=== PATIENT | male | born 1950 | race Caucasian/White ===

== ENCOUNTER → 2018-06-16 | Outpatient (CLI) | payer OTHER ==
[~2018-06-16] VITALS: Ht 188 cm; Wt 113.4 kg
[~2018-06-16] MED LIST: COZAAR 25 MG TA25 M1 PO; FENTANYL PA50 MCG/HR TRANSDERM; HUMALOG KW100 UNIT/1 SUBQ; IBUPROFEN 200200 M1 PO; LANTUS SUBQ; LEVEMIR FL100 UNIT/2 SUBQ; NEURONTIN 300300 M1 PO; NORCO 10-325 T1 EAC1 PO; NORCO 10-325 T1 EACH PO; NOVOLIN 70100 UNIT/5 SQ; PROBIOTIC1 EAC1 PO; STOOL SOFTENER100 MG PO; VALIUM5 MG PO; XARELTO15 MG PO
[2018-06-16 12:53] VITALS: BP 131/81
== END ==
LOC: PAIN 10:56
DX: M54.5 Low back pain (principal); M25.551 Pain in right hip; M25.552 Pain in left hip; Z79.899 Other long term (current) drug therapy

== ENCOUNTER 2019-02-13 10:01 | Inpatient (IN) | payer OTHER ==
[~2019-02-13] VITALS: Ht 188 cm; Wt 109.3 kg
--- NOTE | ~2019-02-13 | HC ---
[facility] [place] [address] CONSULTATION Name: ALEXX LINDSEY Room #: 360-P [facility] IN M.R.#: [id number] Admission: 02/13/19 Attend Phys: Colton Marinelli MD Discharge: Date of : 52 Report #: [id number] THIS REPORT FOR: //name// CC: Hal Marinelli DATE OF SERVICE: 02/14/2019 HISTORY OF PRESENT ILLNESS: The patient is a 68-year-old white male premorbidly independent, ambulatory without gait aid, who began having problems with falls, 4-5 falls in the last couple of days prior to admission. He was noted to have slurred speech during this period along with right-sided weakness. He had an abrasion right forehead after a fall. He was admitted to [facility]. He has been seen by Neurology. He has been diagnosed with a CVA with some mild right-sided hemiparesis. MRI confirmed a left frontal subcortical small infarct, acute versus subacute as well as an old small left parietal cortical infarct. We are seeing the patient in rehabilitation medicine consultation. PAST MEDICAL HISTORY: Includes insulin-dependent diabetes mellitus, rheumatic fever, hypertension, right lower extremity DVT. He does have history of chronic back pain and therapy has caused increased pain. He also has complaints of lower extremity paresthesias. HABITS: Tobacco abuse, 5 cigarettes per day. No history of alcohol abuse. ALLERGIES: LANOLIN. SOCIAL HISTORY: Lives in a house with his sister and [id number], 2 steps in. There is a basement, but he does not typically get down there. He was premorbidly ambulatory without gait aids. REVIEW OF SYSTEMS: Did not offer any current complaints of chest pain, shortness of breath, abdominal discomfort. He does have the lower extremity paresthesias. PHYSICAL EXAMINATION: GENERAL: A 68-year-old bearded white male in no obvious distress. VITAL SIGNS: Last recorded temperature 97.7, pulse 70, respirations 18, blood pressure 140/72. NEUROLOGIC: The patient is alert, appears appropriate. Some decreased verbalizations. Tends to defer to his sister. EOMs appeared to be full. No obvious visual field neglect to confrontation. Facies appeared reasonably symmetric. He is a left-handed white male. He does have good strength of the left upper and left lower extremity without focal weakness. Appears to have some right-sided weakness. Appears mild. I would grade at 4-/5. Right [address] [address] CONSULTATION Name: ALEXX LINDSEY Room #: 360-P [facility] IN .R.#: [id number] Admission: 02/13/19 Attend Phys: Colton Marinelli MD Discharge: Date of : 52 Report #: [id number] and right lower extremity. He might have some mild coordination deficits. Does pretty well with simultaneous stimulation as far as checking sensation. There is no clonus at the ankle and negative Knight's. Gait stability will be checked by physical therapy. ASSESSMENT: A 68-year-old male with the following problem list: 1. Left frontal subcortical infarct, acute versus subacute. 2. Right hemiparesis. 3. Gait instability with multiple falls, just prior to admission. 4. Lower extremity paresthesias with probable diabetic neuropathy per Neurology consultation. 5. Chronic back pain. 6. Hypertension. 7. Rheumatic fever. PLAN: Therapy evaluations are underway. We will need to see how he does in his therapy assessments. With the multiple falls that he had prior to admission, decreased balance. He certainly has significant concern. He certainly may warrant a short acute in-hospital inpatient rehabilitation stay. At this point in time, we will be glad to follow along with you regarding his rehab therapy needs. By: 1055 1425 Jamar Dillon MD /RAYMUNDO
[2019-02-13 10:02] VITALS: BP 164/87
[2019-02-13 10:17] LABS: HEMATOCRIT 44.7 % (42.0-52.0); HEMOGLOBIN 15.2 gm/dL (14.0-18.0); MCH 31.8 pg (26.0-34.0); MCV 93.5 fL (80.0-100.0); PLATELET COUNT 139 thou/uL (150-400); RBC 4.78 mil/uL (4.50-6.00); RDW 12.5 % (10.5-14.5); WBC 9.5 thou/uL (4.0-11.0)
[2019-02-13 10:27] LABS: CALCIUM 9.6 mg/dL (8.5-10.1); CREATININE 1.5 mg/dL (0.7-1.3); POTASSIUM 4.3 mmol/L (3.5-5.1)
[2019-02-13 10:33] LABS: ALBUMIN 3.2 g/dL (3.4-5.0); TOTAL BILIRUBIN 1.1 mg/dL (<0.1-1.0); TOTAL PROTEIN 7.9 g/dL (6.4-8.2)
[2019-02-13 10:42] LABS: APTT 32.6 Seconds (24.5-32.8); PROTIME 10.7 Seconds (9.3-11.4)
[2019-02-13 11:34] LABS: ABSOLUTE NEUTROPHILS 7.2 thou/uL (1.4-8.2)
[2019-02-13 13:32] VITALS: BP 167/99
[2019-02-13 13:50] VITALS: BP 138/69
[2019-02-13 14:00] VITALS: BP 128/102
--- NOTE | 2019-02-13 14:23 | NUR ---
PT ORIENTED TO ROOM AND UNIT, BED LOW AND LOCKED, SIDE RAILS UPX 3, CALL LIGHT IN REACH. TELE APPLIED AND PT SIGNED SAFETY LETTER. WILL CONTINUE TO ASSESS.
--- NOTE | 2019-02-13 14:42 | NUR ---
PT OFF UNIT TO MRI.
[2019-02-13 16:25] LABS: CHOLESTEROL 111 mg/dL (<200); HDL CHOLESTEROL 45 mg/dL (>40); LDL CHOLESTEROL 53 mg/dL (<100); TC:HDL 2.5 Ratio (Not establshd); TRIGLYCERIDE 68 mg/dL (<150); VLDL 14 mg/dL (<40)
[2019-02-13 16:27] LABS: SERUM ASSESSMENT Clear; TSH 1.799 uIU/mL (0.358-3.740)
[2019-02-13 19:42] VITALS: BP 151/76
[2019-02-13 23:19] VITALS: BP 133/78
--- NOTE | 2019-02-14 02:43 | NUR ---
PATIENT IS PROGRESSING SLOWLY IN HIS CARE PLAN. VITAL SIGNS STABLE WITH PATIENT HAVING NO COMPLAINTS OF NAUSEA. PATIENT DID COMPLAIN OF ABDOMINAL PAIN FREQUENTLY WHICH HE ATTRIBUTES TO HIS RECENT FALLS, WHICH WAS TREATED APPROPRIATELY THROUGH MEDICATION. FULLY ORIENTED, PATIENT IS ABLE TO PARTICIPATE IN CARE BUT IS SOMETIMES RELUCTANT TO VOICE CONCERNS AND IS FLAT AT TIMES. UP MULTIPLE TIMES TO THE BEDSIDE COMMODE WITH ASSISTANCE INCIDENT FREE, PATIENT IS CONSIDERED A HIGH FALL RISK AND IS VERY UNSTABLE ON HIS FEET. CONTINUE PLAN OF CARE.
[2019-02-14 04:39] VITALS: BP 125/82
--- NOTE | 2019-02-14 07:44 | EKG ---
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 : 1950 Requested By: Ronal Yanez Order Number: [id number] MD: Inocente Savage Measurements Intervals Higginson Rate: 85 P: 32 SD: 175 QRS: 17 QRSD: 87 T: 99 QT: 384 QTc: 457 Interpretive Statements Sinus rhythm Atrial premature complexes Nonspecific ST and T wave abnormality No previous ECG available for comparison Electronically Signed On 02-14-2019 7:44:21 CDT by Inocente Savage [email or web address] <ELECTRONICALLY SIGNED> By: Inocente Savage MD, [facility] 02/14/19 0744 1002 1002 Inocente Savage MD, FACC /EPI
[2019-02-14 08:36] VITALS: BP 140/72
--- NOTE | 2019-02-14 09:55 | 2DMMODE ---
[facility] [place] [address] 2 D/M-MODE ECHOCARDIOGRAM Name: ALEXX LINDSEY Chantel Room #: 360-P ADM IN .R.#: [id number] Admission: 02/13/19 Attend Phys: Colton Marinelli MD Discharge: Date of : 52 Date of Service: 02/14/19 0955 Report #: [id number] THIS REPORT FOR: //name// APPROVED REPORT Study performed: 02/14/2019 08:56:15 EXAM: Comprehensive 2D, Doppler, and color-flow Echocardiogram Patient Location: Echo lab Room #: 360 Status: routine BSA: 2.34 HR: 70 bpm BP: 140/72 mmHg Rhythm: NSR/Arrhythmia/PVCs Other Information Study Quality: Fair Technically limited study due to body habitus. Indications Stroke. Hx: DM, HTN, CVA. Echo Enhancing Agent Indication: Rule out Shunt Agent(s) / Amount(s) Used: Agitated Saline 6 cc 2D Dimensions RVDd: 34.34 mm IVSd: 13.27 (7-11mm) LVOT Diam: 21.75 (18-24mm) LVDd: 41.12 mm PWd: 9.71 (7-11mm) Ascending Ao: 36.98 (22-36mm) LVDs: 29.04 (25-40mm) Aortic Root: 33.97 mm Volumes Left Atrial Volume (Systole) Single Plane 4CH: 55.07 mL Single Plane 2CH: 55.90 mL LA ESV Index: 25.00 mL/m2 Aortic Valve AoV Peak Gilberto.: 3.76 m/s AO Peak Gr.: 56.65 mmHg LVOT Max P.60 mmHg AO Mean Gr.: 39.35 mmHg AO V2 Mean: 3.01 m/s LVOT Max V: 0.81 m/s [facility] [place] [address] 2 D/M-MODE ECHOCARDIOGRAM Name: ALEXX LINDSEY Room #: 360-P [facility] IN M.R.#: [id number] Admission: 02/13/19 Attend Phys: Colton Marinelli MD Discharge: Date of : 52 Date of Service: 02/14/19 0955 Report #: [id number] AO V2 VTI: 88.96 cm FELIPE Vmax: 0.80 cm2 Mitral Valve E/A Ratio: 0.6 MV Decel. Time: 548.97 ms MV E Max Gilberto.: 0.38 m/s MV A Gilberto.: 0.59 m/s MV PHT: 159.20 ms IVRT: 92.27 ms Pulmonary Valve PV Peak Gilberto.: 0.82 m/s PV Peak Gr.: 2.68 mmHg Pulmonary Vein P Vein S: 0.55 m/s P Vein A: 0.32 m/s P Vein D: 0.28 m/s P Vein A Dur.: 101.5 msec P Vein S/D Ratio: 1.96 Left Ventricle The left ventricle is normal size. Regional wall motion is not well visualized but grossly normal. Mild concentric left ventricular hypertrophy. Left ventricular systolic function is normal. LVEF is 60%. Mild diastolic dysfunction Right Ventricle The right ventricle is normal size. The right ventricular systolic function is normal. Atria The left atrium size is normal. No shunting noted by contrast bubble injection. The right atrium size is normal. Aortic Valve Aortic valve is heavily calcified. Trace aortic regurgitation. There is severe valvular aortic stenosis. Calculated aortic valve area is 0.8 cm2 with maximum pressure gradient of 57 mmHg and mean pressure gradient of 39 mmHg. Mitral Valve The mitral valve is normal in structure. Trace mitral regurgitation. Tricuspid Valve The tricuspid valve is normal in structure. Trace tricuspid regurgitation. Unable to assess PA pressure. [facility] [address] [place] [address] 2 D/M-MODE ECHOCARDIOGRAM Name: ALEXX LINDSEY Room #: 360-P [facility] IN ..#: [id number] Admission: 02/13/19 Attend Phys: Colton Marinelli MD Discharge: Date of : 52 Date of Service: 02/14/19 0955 Report #: [id number] Pulmonic Valve Pulmonic valve is not well visualized. Great Vessels The aortic root is normal in size. The ascending aorta is normal in size. IVC is not well visualized. Pericardium There is no pericardial effusion. <Conclusion> Left ventricular systolic function is normal. Regional wall motion is not well visualized but grossly normal. LVEF is 60%. Mild diastolic dysfunction No shunting noted by contrast bubble injection. There is severe valvular aortic stenosis. Trace aortic regurgitation. Calculated aortic valve area is 0.8 cm2 (Peak pressure gradient of 57 mmHg, mean pressure gradient of 39 mmHg). The mitral valve is normal in structure. Trace mitral regurgitation. Pulomonary artery pressure could not be reliably ascertained. There is no pericardial effusion. <ELECTRONICALLY SIGNED> By: Inocente Savage MD, FACC 02/14/19954 4 4 Inocente Savage MD, FACC /INF
[2019-02-14 10:16] LABS: URINE BILIRUBIN NEGATIVE (Negative); URINE BLOOD TRACE (Negative); URINE CLARITY CLEAR; URINE COLOR YELLOW; URINE GLUCOSE-RANDOM* TRACE (Negative); URINE KETONES NEGATIVE (Negative); URINE LEUKOCYTES NEGATIVE (Negative); URINE NITRITE NEGATIVE (Negative); URINE PROTEIN (DIPSTICK) 3+ (Negative); URINE SPECIFIC GRAVITY 1.025 (1.005-1.035); URINE UROBILINOGEN 0.2 E.U./dl (0.2-1.0)
[2019-02-14 10:23] LABS: BACTERIA 1-9 Few /HPF (None Seen); CRYSTALS None Seen /LPF (None Seen); HYALINE CASTS 0-3 Few /LPF (None Seen); SQUAMOUS 0-3 Few /LPF (0-3); URINE RBC 0-2 Rare /HPF (0-2); URINE WBC 0-5 Rare /HPF (0-5)
--- NOTE | 2019-02-14 14:08 | NUR ---
INITIAL ASSESSMENT: Received consult for discharge planning. AINSLEY reviewed chart and spoke with nursing and attending physician. Pt was admitted from home following period of weakness and falls. Pt with hx of CVA. Therapy services and 5N consulted to evaluate pt for discharge needs. AINSLEY met with pt and his sister at bedside. Introduced role of SW. Pt is alert/orientated. Pt lives at home with his sister and brother in law. 2 steps to enter to house and no steps on the ground level. Prior to admission, pt was independent with ADLs. No use of DME. No hx of HH services or SNF/Rehab placement. AINSLEY discussed 5N consult and need for insurance authorization. Pt and sister are agreeable. SW to provide in-network SNF list for review if insurance does not authorize 5N. AINSLEY is following to assist as needed with discharge planning.
--- NOTE | 2019-02-14 15:00 | NUR ---
CONSULT FOR 5N REHAB FOR THIS Pt. Pt SEEN BY REHABILIATION PHYSICIAN FOR CONSULT. Pt ADMITTED TO [facility] AND FOUND TO HAVE L FRONTAL CVA ACUTE VS SUBACUTE WITH SOME R SIDED IMPAIRMENTS. AWAITING THERAPY EVALUATIONS TO BE COMPLETED. WILL PURSUE AUTHORIZATION FOR ACUTE REHAB IF NEEDED BASED ON THERAPY EVALUATIONS AND RECOMMENDATIONS. 5N REHAB WILL CONTINUE TO FOLLOW. THANK YOU FOR THIS REFERRAL TO THE ACUTE REHAB UNIT.
[2019-02-14 15:37] VITALS: BP 138/81
--- NOTE | 2019-02-14 18:41 | NUR ---
Assumed care approx. 0700 this AM. Flat affect and slow response noted. Patient had no complaints of pain, but was nauseated most of the day. Order given for 4mg of IV zofran. Patient seems to a little weaker on his right side than left, and doesn't have full leg strength. Patient up with gait belt and walker. Patient quite unsteady on feet and loses balance easily. Patient can be quick to fall back and side to side. PT stated patient is definitely a high fall risk, and if bed/chair alarm goes off then it is important to get to the room quick. Fall precautions are in place. Patient's sister at bedside most of shift. Slow progression toward plan of care.
[2019-02-14 19:30] VITALS: BP 136/80
[2019-02-15 03:59] VITALS: BP 122/80
--- NOTE | 2019-02-15 06:00 | NUR ---
PT HAS FLAT EFFECT. A/OX4 AND CAN ANSWER PERSON/PLACE/TIME QUESTIONS CORRECTLY, BUT JUST A SLOW. PT STATED HE WAS HAVING ABDOMINAL PAIN AT ASSESSMENT TIME. ORAL PAIN MEDICATION GIVEN. AT 0130 PT STATED HE WAS HURTING IN ABDOMEN. BLADDER SCANNED AND PT HAD 800ML. X2 WITH GAIT BELT TO [facility]. PT VOIDED 400ML. RESCANNED AND PT HAD 300ML. PT STATED HE FELT MUCH BETTER, WILL CONTINUE TO MONITOR AND DISCUSS AT MORNING REPORT. FALL PRECAUTIONS IN PLACE PT IS WEAK AND HAS RIGHT SIDED WEAKNESS DUE TO CVA. HOURLY ROUNDING.
[2019-02-15 07:29] VITALS: BP 142/89
[2019-02-15] MEDS ORDERED: VALIUM5 MG PO (12:14)
--- NOTE | 2019-02-15 13:12 | NUR ---
SW reviewed chart and spoke with nursing and attending physician. Pt is progressing towards goals for discharge. SW discussed with 5N rehab nurse. 5N did submit for insurance authorization today. AINSLEY met with pt and sister at bedside to provide update. SW provided pt and sister with list of in network SNFs for review in case insurance denied inpt acute rehab. Awaiting determination from insurance at this time. AINSLEY is following to assist as needed with discharge planning.
[2019-02-15 15:35] VITALS: BP 150/81
--- NOTE | 2019-02-15 15:53 | NUR ---
Pt HAS BEEN SEEN BY PT AND OT AND RECOMMENDATIONS HAVE BEEN MADE FOR ACUTE REHAB. SUBMITTED FOR AUTHORIZATION WITH [facility]. CONFIRMED WITH [facility] GIS MANAGER GIOVANA THAT [facility] IS IN-NETWORK. SPOKE WITH ELISE AT [facility] AND RECEIVED REFERENCE #: [id number]. AWAITING UPDATE FROM [facility] REGARDING AUTHORIZATION FOR ACUTE REHAB.
[2019-02-15 19:14] VITALS: BP 159/90
[2019-02-16] VITALS (7 sets, daily range): BP systolic 121–142; BP diastolic 71–85
--- NOTE | 2019-02-16 05:15 | NUR ---
PT SHOWED UP AT 0400 AND WAS DEMANDING ANSWERS ABOUT PT CONDITION. I ASKED HER IF SHE HAD PTS 4 DIGIT SECURITY CODE, AND SHE SAID NO. I EXPLAINED DUE TO HIPAA I COULD NOT RELEASE HIS INFORMATION OR CONDITION TO HER. PT IS NOT LISTED AN AUTHORIZED CONTACT ON HIS FACE SHEET. THE ONLY AUTHORIZED POC IS EMILY GRANADOS. "" SAID HE SENT HER A TEXT THAT HE WAS HERE. THROUGH REPORT PT LIVES WITH HIS SON AND [id number]. WILL CONTINUE TO MONITOR SITUATION.
--- NOTE | 2019-02-16 05:27 | NUR ---
AT 2100 PT STATED THAT HIS ABDOMEN WAS HURTING AND HE NEEDED TO URINATE. ORDERS WERE GIVEN DURING THE DAY TO BLADDER SCAN AND STRAIGHT CATH AT 450ML. PT HAD 325ML SCAN AT 2100. I EDUCATED PT THAT I WOULD NOT STRAIGHT CATH UNTIL WE REACHED THAT JOCELIN. PT WAS PLACED ON FLOWMAX EARLIER IN THE DAY ALSO. PT FINALLY ABLE TO VOID APPROX 850ML OVER THE REST OF THE SHIFT VIA URINAL. HOURLY ROUNDING AND FALL PRECAUTIONS IN PLACE.
--- NOTE | 2019-02-16 11:42 | NUR ---
LINQ RECORDER PLACED BY DR SHELBY WITHOUT DIFFICULTY. SITE NUMBED WITH 9 CC LIDOCAINE. PT TOLLERATED WELL. SITE SUTURED CLOSE AND STERI STRIPS APPLIED. STERILE GAUZE DSG PLACED OVER SITE. PT MONITORED X 30 MIN. NO BLEDING HEMATOMA NOTED . PT RETURNED TO ROOM STABLE CONDITION. REPORT GIVEN TO PT'S RN
--- NOTE | 2019-02-16 13:56 | NUR ---
SW reviewed chart and spoke with nursing and attending physician. Pt is progressing towards goals for discharge. Discussed case with 5N regional liaison, who is waiting to hear back from pt's health insurance. SW is following to assist as needed with discharge planning.
--- NOTE | 2019-02-16 17:45 | NUR ---
ASSUMED CARE OF PT AT 0700. PT ALERT AND ORIENTED IN NO ACUTE DISTRESS. VOICING NO PARTICULAR CONCERNS. PHYSICAL THERAPY IMPROVED SINCE YESTERDAY. UP W/ MIN ASSIST PER PHYSICAL THERAPIST. IMPLANTED LOOP RECORDER PLACED BY CARDIOLOGY. VOIDING IMPROVED AFTER FLOMAX. PT PROGRESSING TOWARD POC GOALS.
--- NOTE | 2019-02-16 18:04 | NUR ---
AUTHORIZATION FOR ACUTE REHAB RECEIVED FOR THIS Pt FOR 14 DAYS. Pt WENT FOR IMPLANTED LOOP RECORDER TODAY. WILL PLAN FOR 5N ADMISSION TOMORROW IF CLEARED FOR D/C.
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
--- NOTE | 2019-02-17 04:39 | NUR ---
Assumed care of patient around 2300. Patient able to sleep most of night. Denies pain, soa, n/v, dizziness. No acute changes overnight, will continue to monitor.
[2019-02-17 04:56] VITALS: BP 142/87
[2019-02-17 07:02] VITALS: BP 142/83
[2019-02-17] MEDS ORDERED: LIPITOR40 MG PO (12:13)
[2019-02-17] MEDS ORDERED: FLOMAX0.4 MG PO (12:13)
[2019-02-17] MEDS ORDERED: LEVEMIR SUBQ (12:13)
[2019-02-17] MEDS ORDERED: ASPIR 8181 MG PO (12:13)
[2019-02-17] MEDS ORDERED: NOVOLOG100 UNIT/1 SUBQ (12:13)
--- NOTE | 2019-02-17 13:21 | NUR ---
PT ALERT AND ORIENTED TIMES FOUR. VSS, SR ON TELE. PT DENIES PAIN/SOA. PT UP TO BSC WITH ASSIST OF ONE. PT TOLERATES MEDS AND MEALS. FAMILY AT BEDSIDE. PT PROGRESSING TOWRADS POC GOALS.
== END 2019-02-17 13:03 | DRG 65 ==
LOC: ER 10:01 → EROBS 12:39 → 3W 12:39
PROVIDERS: Emergency Medicine; Psychiatry & Neurology Neurology; ADMIT Internal Medicine
DX: I63.9 Cerebral infarction, unspecified (principal); G81.91 Hemiplegia, unspecified affecting right dominant side; N17.9 Acute kidney failure, unspecified; E11.9 Type 2 diabetes mellitus without complications; R33.9 Retention of urine, unspecified; N18.9 Chronic kidney disease, unspecified; I35.0 Nonrheumatic aortic (valve) stenosis; G89.29 Other chronic pain; M54.9 Dorsalgia, unspecified; F17.210 Nicotine dependence, cigarettes, uncomplicated; I12.9 Hypertensive chronic kidney disease with stage 1 through stage 4 chronic kidney disease, or unspecified chronic kidney disease; Z79.82 Long term (current) use of aspirin; Z79.899 Other long term (current) drug therapy; Z83.3 Family history of diabetes mellitus; Z82.49 Family history of ischemic heart disease and other diseases of the circulatory system; Z79.4 Long term (current) use of insulin; Z86.718 Personal history of other venous thrombosis and embolism; Z88.8 Allergy status to other drugs, medicaments and biological substances; Z80.9 Family history of malignant neoplasm, unspecified
CPT/HCPCS: 10879

== ENCOUNTER 2019-02-16 21:22 | Inpatient (IN) | payer OTHER ==
[~2019-02-16] VITALS: Ht 188 cm; Wt 128.8 kg
--- NOTE | ~2019-02-16 | HC ---
[facility] [place] [address] CONSULTATION Name: ALEXX LINDSEY Room #: 513-P ADM IN M.R.#: [id number] Admission: 02/17/19 Attend Phys: Jamar Dillon MD Discharge: Date of : 52 Report #: [id number] THIS REPORT FOR: //name// CC: Jamar Neville DATE OF SERVICE: 02/25/2019 REASON FOR CONSULTATION: Right possible fibular fracture. HISTORY OF PRESENT ILLNESS: The patient is a 68-year-old male admitted for a stroke, who reports yesterday, twisting his ankle in the bathroom and noting some mild pain later in the day. He has some pain with weightbearing laterally, but he reports it is fairly mild. He denies any other injuries. REVIEW OF SYSTEMS: MUSCULOSKELETAL: See HPI. Denies any other injuries. NEUROLOGIC: Denies new-onset numbness or tingling. Does report a history of bilateral numbness and tingling in both feet due to peripheral neuropathy. PAST MEDICAL HISTORY: Significant for coronary artery disease, history of stroke, aortic stenosis, hypertension, and hyperlipidemia. PAST SURGICAL HISTORY: None. SOCIAL HISTORY: Apparently, he does smoke. Denies using alcohol. ALLERGIES: LANOLIN. LABORATORY STUDIES: Done on 02/23/2019 show white blood cell count 6.1, hemoglobin 12.4, hematocrit 36.2, platelet count 167. PHYSICAL EXAMINATION: GENERAL: The patient is awake, alert and oriented, interacts appropriately. He is well-developed, well-nourished male in no acute distress. He has somewhat of a mild flattened affect. VITAL SIGNS: Temperature is 36.7, heart rate is 70, respiratory rate 18, blood pressure 146/74. EXTREMITIES: Examination of his right lower extremity: There is no edema noted. He is distally neurovascularly intact. Brisk capillary refill. Gross sensation and motor intact. He has some very mild tenderness to the distal fibula. There is no ankle instability. There is no other tenderness. RADIOGRAPHS: AP and lateral of the right ankle show a possible lateral nondisplaced fibular fracture. [facility] [address] [place] [address] CONSULTATION Name: ALEXX LINDSEY Room #: 513-P ADM IN M.R.#: [id number] Admission: 02/17/19 Attend Phys: Jamar Dillon MD Discharge: Date of : 52 Report #: [id number] IMPRESSION AND PLAN: Right probable nondisplaced fibular fracture. At this point, I recommend a Cam walker. He may be weightbearing as tolerated. He should see one of my [facility] partners in a week or so. Questions were encouraged and answered to the best of my ability. Thank you very much for allowing me to participate in the care of this patient. I will sign off. Please call if you needed me. By: [id number] Renata Moctezuma MD /nt
[2019-02-17] MEDS ORDERED: ASPIR 8181 MG PO (12:13)
[2019-02-17] MEDS ORDERED: FLOMAX0.4 MG PO (12:13)
[2019-02-17] MEDS ORDERED: NOVOLOG100 UNIT/1 SUBQ (12:13)
[2019-02-17] MEDS ORDERED: LEVEMIR SUBQ (12:13)
[2019-02-17] MEDS ORDERED: LIPITOR40 MG PO (12:13)
[2019-02-17 12:27] LABS: HEMATOCRIT 41.3 % (42.0-52.0); HEMOGLOBIN 13.9 gm/dL (14.0-18.0); MCH 31.7 pg (26.0-34.0); MCHC 33.6 g/dL (28.0-37.0); MCV 94.3 fL (80.0-100.0); RBC 4.38 mil/uL (4.50-6.00); RDW 12.6 % (10.5-14.5); WBC 6.7 thou/uL (4.0-11.0)
[2019-02-17 12:37] LABS: CALCIUM 9.2 mg/dL (8.5-10.1); CREATININE 1.5 mg/dL (0.7-1.3); POTASSIUM 4.8 mmol/L (3.5-5.1)
[2019-02-17 13:15] VITALS: BP 152/87
--- NOTE | 2019-02-17 15:15 | NUR ---
ASSUMED CARE OF PT AT APPROXIMATELY 1330. REPORT GIVEN BY NURSE ON PRIOR UNIT. ADMISSION ASSESSMENT COMPLETED, CONSENTS SIGNED, ADMISSION EDUCATION COMPLETED, PT ORIENTED TO UNIT. [facility] PT IS A&OX4 AND VITAL SIGNS ARE STABLE. ACCU CHECKS ACHS ORDERS FOR INSULIN. PT REPORTS PAIN 7/10 BUT STATES THAT HE DOES NOT WANT PAIN MEDICAITONS AT THIS TIME. THERAPY IN ROOM WITH PT FOR EVALUATION. PT REQUIRES EXTRA TIME WHEN ANSWERING QUESTIONS, BUT DOES RESPOND APPROPRAITELY. IV IN RIGHT FORARM IS PATENT AND WITHOUT REDNESS, WARMTH, OR DRAINAGE. FALL PRECAUTIONS IN PLACE AND NURSING WILL CONTIUE TO MONITOR.
[2019-02-17 19:30] VITALS: BP 142/91
--- NOTE | 2019-02-18 02:42 | NUR ---
assumed care at approx 1900 evening 02/17. pt awake and alert c/o pain to right hip. pain med given as ordered. pt with somewhat slurred speech. pt somewhat restless trying to void in urinal and not able to. bladder scanned showed >600, straight cathed (450 ml). pt tolerated well. pt appears to be sleeping soundly at present. bed alarm on and call light in reach. will continue to monitor on hourly rounds.
[2019-02-18 07:30] VITALS: BP 144/73
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
[2019-02-18 19:40] VITALS: BP 128/58
--- NOTE | 2019-02-19 02:15 | NUR ---
PT SITTING ON SIDE OF BED TO VOID PER URINAL. LIDOCAINE PATCH AND LORTAB PROVIDING PAIN RELIEF. RESTING COMFORTABLY. NO NEEDS VOICED. CALL LIGHT WITHIN REACH. WILL CONTINUE TO PROVIDE FREQUENT OBSERVATION.
[2019-02-19 07:40] VITALS: BP 143/81
--- NOTE | 2019-02-19 08:20 | NUR ---
chart review. cm visited with pt at bedside, he up sitting on edge of bed for breakfast. pt preferrs going by magi yang & andrew x 3 with some forgetfulness at time, pleasant and quit. intro to cm, dcp, and team meeting. pt reported " live with sister and brother in law, 2 steps to enter home, then no steps. no medical equip. manage own medication, no longer drive, no hh in past"/celia and chart. will cont following as needed for dc needs.
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
--- NOTE | 2019-02-19 08:59 | NUR ---
Nutrition: Received consult for uncontrolled diabetes. RD visited this AM. Per chart review, A1c obtained 02/13 was good at 7%. Currently on Humalog SSI, plus 15 units Lantus BID. Pt states he also takes insulin at home, no oral DM meds. BGs while hospitalized running much higher, despite good A1c level. Current BGs 200-303 mg/dl per 02/17; 197-321 per 02/18. States past diabetes ed. Was very short with RD, showed little interest in review or hearing about nutrition tips to help. Encouraged to leave an extra starchy item or 2 on his plate. Pt state he was not worried about his BGs one bit. Recommended focus on protein, vegetables first for positive fiber impact to help BG control. Low nutrition risk- but if BGs persistently elevated >200, consider further carb restriction and limit to 4 CHO choices/meal max. Shall follow BG trends.
[2019-02-19 10:18] VITALS: BP 123/61
[2019-02-19 19:15] VITALS: BP 127/66
--- NOTE | 2019-02-19 20:00 | NUR ---
ASSUMED CARE OF PT AT 1915. PT IS A&OX4 WITH REPORTED FORGETFULLNESS. IS ON ROOM AIR. IS STABLE & REPORTS PAIN IN RIGHT HIP 02/17 THAT IS BEING MANAGED WITH PAIN MEDS & COLD THERAPY. IS UP WITH 1 ASSIST, GB, WALKER. FALL PRECAUTIONS & HOURLY ROUNDING MAINTAINED. LABS & VITALS REVIWED. PT IS CURRENTLY LYING IN BED, WATCHING TV, CALL LIGHT WITHIN REACH. WILL CONTINUE TO MONITOR.
[2019-02-20 07:30] VITALS: BP 139/70
--- NOTE | 2019-02-20 08:47 | NUR ---
ASSUMED CARE AT 0700. UP FOR PHYSICAL THERAPIST. VSS ON RA. RATES HIP PAIN 12/18 TOOK NEUROTIN SCHEDULE THIS AM. MORNING MEDS GIVEN. REAPORTS SLEPT GOOD.PATIENT IS ALERT AND ORIENTED X4. HAS LITTLE SLURRED SPEECH. PATIENT HAS LEFT SIDED WEAKNESS AND SLURRED SPEECH. LUNGS ARE CLEAR AND DIMINISHED. ABD IS SOFT AND ROUNDED. MIRALAX AND COLACE GIVEN FOR C/O CONSTIPATION. VOIDING GIOVANNA COLORED URINE PER URINAL. ABLE TO URINATE BETTER ABOUT 11OOCC PER NIGHT NURSE. CONTINUE TO MONITOR FOR RETENTION. ON FLOMAX AT THIS AM. UP ON CHAIR FOR BREAKFAST. OFFERED SUPPORTIVE CARE. ENCOURAGED PT TO VOICE HIS NEEDS. BS 150. GAVE 17UNITS OF LANTUS AND 4 UNITS OF LISPRO BEFORE BREAKFAST. PT ABLE TO MANAGE HIS OWN TRAY, JUST HELP TO OPEN MILK CART. ATE 100% BREAKFAST. REASSESSMENT PER CHART. TAKE MEDS WITH THIN WATER WITHOUT PROBLEM. FALL AND SAFETY PROTOCOLS IN PLACE. UP WITH ASSIST OF 1 STAFF,WALKER, AND GAIT BELT. PATIENT HAS LOOP RECOREDER ON LEFT SIDE OF HIS CHEST COVERED WITH 2X2. GOALS TO WORK WITH THERAPY, TAKE SHOWER WITH OT AND HAS BM TODAY.CONTINUES TO PROGESS SLOWLY TOWARDS D/C GOALS. WILL CONTINUE TO MONITOR.
--- NOTE | 2019-02-20 13:31 | NUR ---
team meeting, recommendation: processing towards goals, outpt neuropysch, will need fww, will need assistance with pills and bills, anticapation dc [facility]( pt, ot, st, nursing).
[2019-02-20 20:13] VITALS: BP 147/71
--- NOTE | 2019-02-21 01:51 | NUR ---
ASSUMED CARE FROM DAY SHIFT PT RSTING IN BED DENIES PAIN,NO RESULTS FROM LAXAXTIVES OR SUPP, PT JUST PASSING FLATUS. VOIDING FREQ IN URINAL. PT REMINDED TO USE CALL LIGHT, BED ALARM IIN PLACE FOR SAFETY. PT RESTED WELL THROUGHOUT HOURLY ROUNDS WILL CONITNUE WITH CURRENT PLAN OF CARE. WILL REPORT CHANGES OR ABNORMAL FINDINGS.
[2019-02-21 07:15] VITALS: BP 127/60
--- NOTE | 2019-02-21 10:30 | NUR ---
cm notified by nonprofit manager that pt sister marybel has some concerns that he lives along with his forgetfulness and confusion at time. will cont following as needed for dc needs.
--- NOTE | 2019-02-21 10:34 | NUR ---
ASSUMED PATIENT CARE AT 0700. PATIENT RECEIVED SCHEDULED AND SS INSULIN. WILL HAVE AN X-RAY OF HIP AND PELVIS, PER NEW ORDER FROM DR. STOVALL. NURSE SPOKE WITH RADIOLOGY, PATIENT WILL GO AT 11:00 FOR X-RAY.
--- NOTE | 2019-02-21 12:59 | NUR ---
I have reviewed the documentation by RENO BLEDSOE from 02/20/19 to 02/20 and I concur with it. BING SALEEM
[2019-02-21 19:25] VITALS: BP 151/67
--- NOTE | 2019-02-21 20:59 | NUR ---
PATIENT HAD UNCONTROLLED PAIN THIS AFTERNOON, AND IT WAS NOT YET TIME FOR HIM TO TAKE PRN HYDROCODONE. NOTIFIED MYLA LOCKE NP, WHO ORDERED MUSCLE RELAXER FOR RT HIP PAIN, AND NOTED THAT IF PAIN IS WORSE IN AM, PT MAY NEED MRI, AND TO CALL HER IF PAIN HAS NOT IMPROVED. THIS WAS REPORTED TO THE ONCOMING NURSE AT SHIFT CHANGE.
--- NOTE | 2019-02-22 03:47 | NUR ---
PT REMAIN ALERT AND ORIENT TIMES THREE. PT WAS CHANGED TO ROOM 516 COMING FROM ROOM 503 R/T THE LIGHTS DID NOT WORK IN THAT ROOM. PT'S S/O WAS AT THE BEDSIDE EARLIER DURING WITH SHIFT WITH LOTS OF QUESTIONS R/T MEALS, LIGHTING, AND GENERAL QUESTIONS ABOUT ORDERING SPECIFIC ITEMS FOR MEALS. PT REFUSES TO HAVE THE BED ALARM SET. HE CONTINUOUSLY TURNS BED ALARM OFF. IT WAS EXPLAINED TO THE PT THAT THIS IS A SAFETY MEASURE AND THAT HE WAS EXPLAINED ABOUT THE BED ALARMS UPON ADMISSION. PT REFUSE TO ADHERE TO THIS SAFETY FEATURE, STATING THAT HE 'JUST DOESN'T WANT THE BED ALARM ON." PT IS ABLE TO USE GB/WALKER WITH ASSIST OF ONE. HE IS NOT ABLE TO STAND FOR LONG PERIODS OF TIME AND DOES FALL BACK ON THE BED IN A SITTING POSITION WHILE TRYING TO TAKE HIS PANTS OFF. PRN PAIN MEDICATIONS GIVEN WITH PARTIAL RELIEF PER PT. SOW PROGRESS TOWARDS DC GOAL, WILL CONTINUE TO MONITOR.
--- NOTE | 2019-02-22 03:57 | NUR ---
ASSESSMENT: PT REMAIN ALERT AND ORIENT TIMES FOUR. PT ARRIVED TO THE UNIT AT APPROXIMATELY 2130 PER WHEEL CHAIR. LEFT LEG IN A IMMOBILIZER WITH POLAR PACK. PT C/O PAIN FROM TWO BLISTERED THAT HAS FORMED ON HER LEFT LEG. PIC PENDING THIS SHIFT. PT ABLE TO FEEL TOUCH ON LEFT TOES AND ABLE TO WIGGLE TOES. PT REQUESTED TO HAVE ATIVAN RESUMED WHICH WAS DONE BY Isa VOGT NP. PAIN MEDICATIONS GIVEN FOR LEFT LEG PAIN. VSS AFEBRILE. SLOW PROGRESS, WILL CONTINUE TO MONITOR.
[2019-02-22 07:50] VITALS: BP 100/56
--- NOTE | 2019-02-22 12:55 | NUR ---
cm visited with pt sister marybel rowland at bedside, pt resting with eye closed laying on right side. cm address information that pt lives alone with sister " no not sure how that started but he lives with me and my , small home and width of doors are not wide. he need to know about walker and small door ways. i cant care for him if he is this week, he needs to be allot stronger before he comes home"/marybel. active listening and passed on information to 5n team. clarissa cardio FOOD PRODUCTION ASSOCIATE made visit. pt going for test later today. checked to see if pt and family had chosen hh yet " no not yet my daughter is helping me with that"/marybel
--- NOTE | 2019-02-22 16:10 | NUR ---
I have reviewed the documentation by RENO BLEDSOE from 02/22/19 to 02/22/19 and I concur with it. LISA GIRONT
[2019-02-22 17:58] LABS: URINE BILIRUBIN NEGATIVE (Negative); URINE BLOOD 1+ (Negative); URINE CLARITY CLEAR; URINE COLOR YELLOW; URINE GLUCOSE-RANDOM* NEGATIVE (Negative); URINE KETONES NEGATIVE (Negative); URINE LEUKOCYTES-REFLEX NEGATIVE (Negative); URINE NITRITE-REFLEX NEGATIVE (Negative); URINE PROTEIN (DIPSTICK) 2+ (Negative); URINE SPECIFIC GRAVITY 1.025 (1.005-1.035); URINE UROBILINOGEN 0.2 E.U./dl (0.2-1.0)
[2019-02-22 18:08] LABS: CASTS None Seen /LPF (None Seen); SQUAMOUS None Seen /LPF (0-3)
[2019-02-22 18:09] LABS: BACTERIA-REFLEX None Seen /HPF (None Seen); CRYSTALS None Seen /LPF (None Seen); URINE RBC 0-2 Rare /HPF (0-2); URINE WBC-REFLEX 6-15 Few /HPF (0-5)
--- NOTE | 2019-02-22 19:12 | NUR ---
PATIENT ALERT AND ORIENTED WITH SOME CONFUSION AND SLOW TO RESPOND. HE IS IMPULSIVE AND MOVE TO ROOM BY CLOSER TO NURSE STATION. SISTER AT BEDSIDE AND AVAILABLE FOR TEACHING AND VERY PLEASANT. CARDIOLOGY STOPPED BY TO EDUCATE ABOUT IMPLANTED LOOP RECORDER. PATIENT KNOWS HOW TO TURN OFF BED ALARM. THIS NURSE EXPLAINED THE IMPORTANCE OF THE BED ALARM TO PREVENT FALLS.
[2019-02-22 20:20] VITALS: BP 156/63
--- NOTE | 2019-02-22 23:10 | NUR ---
PT ASSESSMENT COMPLETED AND VSS. MEDS GIVEN ORDERED AND WELL TOLERATED. FALL PRECAUTIONS IN PLACE. VOIDING MODERATE AMOUNT PER URINAL. PRN PAIN MEDICATION HELPFUL. PT APPEARS DEPRESSED REGARDING HIS LIMITATION FROM HIS STROKE. PROVIDED MUCH EMOTIONAL SUPPORT. SUPPORTIVE FAMILY AT BEDSIDE. VERY IMPULSIVE. PT IS ABLE TO TURN OFF HIS ALARM. SLEEPING. WILL CONTINUE TO MONITOR FREQUENTLY.
[2019-02-23 05:13] LABS: HEMATOCRIT 36.2 % (42.0-52.0); HEMOGLOBIN 12.4 gm/dL (14.0-18.0); MCH 32.1 pg (26.0-34.0); MCHC 34.1 g/dL (28.0-37.0); MCV 94.3 fL (80.0-100.0); PLATELET COUNT 167 thou/uL (150-400); RBC 3.84 mil/uL (4.50-6.00); RDW 12.5 % (10.5-14.5); WBC 6.1 thou/uL (4.0-11.0)
[2019-02-23 05:31] LABS: CALCIUM 9.1 mg/dL (8.5-10.1); CREATININE 1.7 mg/dL (0.7-1.3); MAGNESIUM 2.5 mg/dL (1.8-2.4); POTASSIUM 4.5 mmol/L (3.5-5.1)
[2019-02-23 06:11] LABS: ABSOLUTE NEUTROPHILS 3.9 thou/uL (1.4-8.2); PLATELET ESTIMATE NORMAL
--- NOTE | 2019-02-23 06:48 | NUR ---
EARLIER DURING THE SHIFT PT VOIDED TWO TIMES. THEN EARLY THIS MORNING PT WAS NOT ABLE TO VOID. BLADDER SCAN WAS 800. 850 OUT WITH STRAIGHT CATH. AT 0500 BLADDER SCANNED PT AGAIN. RESULT 162. WILL INFORM DAY RN.
--- NOTE | 2019-02-23 07:17 | NUR ---
CONTACTED FAHEEM VOGT REGARDING PTS HEAD SCAN RESULTS. ASKED TO TELL THE DAY RN TO CONTACT FAHEEM LANZA WHEN SHE ROUNDS THIS AM. INFORMED DAY RN.
[2019-02-23 07:45] VITALS: BP 115/76
--- NOTE | 2019-02-23 15:29 | NUR ---
PT ALERT AND ORIENTED TIMES FOUR. VSS, PT DENIEA PAIN/SOA. PT WORKED WELL WITH PT/OT TODAY. PT TOLERATES MEDS AND MEALS. PT SISTER AT BEDSIDE THROUGHT THE DAY. PT PROGRESSING TOWRADS POC GOALS.
--- NOTE | 2019-02-23 16:20 | NUR ---
I have reviewed the documentation by RENO BLEDSOE from 02/23/19 to 02/23/19 and I concur with it. LISA GIRONT
[2019-02-23 19:45] VITALS: BP 134/66
--- NOTE | 2019-02-24 03:04 | NUR ---
ASSUMED CARE FROM DAY SHIFT PT RESTING IN BED, WATCHING TV NO CONCERNS VOICED AT THIS TIME, BLOOD GLUCOSE 158 INSULIN GIVEN PRESCRIBED. RESTING WELL THROUGHOUT HOURLY ROUNDS, NO CONCERNS VOICED. WILL CONITNUE WITH CURRENT PLAN OF CARE AND WILL REPORT CHANGES OR ABNORMAL FINDINGS.
[2019-02-24 07:29] VITALS: BP 143/67
--- NOTE | 2019-02-24 12:29 | NUR ---
ASSUMED CARES AT 0700. PT VERY SLEEPY THIS AM, STATED THAT HE DIDN'T SLEEP WELL LAST NOC. ALERT AND ORIENTED*4. VITALS REMAIN STABLE. PT DENIES PAIN. SKIN REMAINS INTACT. PT VOIDING OKAY PER URINAL, APPROXIMATELY 300CC Q2HRS PER URINAL. PT HAS HAD *2 STOOLS TODAY, ABDOMEN SOFT AND DISTENDED WITH ACTIVE BS. UP WITH SBA, GAITBELT AND WALKER AND TOLERATED WELL. Q1H VISUAL CHECKS. CALL LIGHT WITHIN REACH. FALL PRECAUTIONS IN PLACE
[2019-02-24 13:32] VITALS: BP 150/73
[2019-02-24 14:39] VITALS: BP 127/77
[2019-02-24 20:00] VITALS: BP 129/56
--- NOTE | 2019-02-25 04:04 | NUR ---
ASSESSMENT: PT REMAIN ALERT AND ORIENT TIMES THREE, UP SBA AT THE BEDSIDE TO VOID. VSS, AFEBRILE. PT APPEARS DEPRESSED, SLOW TO RESPOND SECONDARY TO CVA. PT REFUSES TO HAVE THE BED ALARM SET. DOES CALL OUT APPROPRIATELY FOR BR. SLOW PROGRESS TOWARDS DC GOALS, WILL CONTNUE TO MONITOR.
[2019-02-25 06:10] VITALS: BP 140/73
[2019-02-25 07:16] VITALS: BP 146/74
--- NOTE | 2019-02-25 10:35 | NUR ---
ASSUMED CARE AT 0700. PATIENT IS ALERT AND ORIENTED . PATIENT NEMESIO , BUT HAS RIGHT SIDED WEAKNESS. UP WITH ASSIST OF 1 STAFF AND GAIT BELT AND WALKER. LUNGS ARE CLEAR. ABD IS SOFT WITH BSX4. UP IN SIDE OF BED FOR BREAKFAST. FALL AND SAFETY PROTOCOLS IN PLACE. C/O PAIN IN HIS BACK. MEDICATED WITH PRN PAIN MED. CONTINUES TO PROGESS SLOWLY TOWARDS D/C GOALS. WILL CONTINUE TO MONITER.
--- NOTE | 2019-02-25 14:53 | NUR ---
1400 PATIENT C/O PAIN IN HIS RIGHT FOOT AND ANKLE ON AMBULATION WITH P.T. DURING THERAPY TODAY. DR. CLAUDIO NOTIFIED. 2 VIEW RIGHT ANKLE AND FOOT XRAYS ORDERED TO R/O FX OR INJURY.
--- NOTE | 2019-02-25 18:39 | NUR ---
XRAYS OF RIGHT ANKLE SHOW NONDISPLACED FX OF PATIENTS RIGHT FIBULA. PATIENT IS TO BE SEEN BY [facility] AND IS TO BE NONWEIGHT BEARING UNTIL THEN. BED PYRIDINE RECOVERY OPERATOR APPLIED TO BED FOR COMFORT. PATIENT MEDICATED WITH PRN PAIN MED. WILL CONTINUE TO MONITER. CONSULT CALLED TO [facility], AND DANIEL JOHNSON IS EXTERMINATION INSPECTOR.
--- NOTE | 2019-02-25 19:38 | NUR ---
1800 PATIENT RESTING QUIETLY IN BED WITH BED ALARMS ON. PATIENT RIGHT LEG ELEVATED ON PILLOW FOR COMFORT. PATIENT CONTINUES ON Q2 HOUR NEURO CHECKS. BED EMT INTERMEDIATE APPLIED TO BED FOR COMFORT. PATIENT REMAINS ON NON-WT BEARING STATUS UNTIL SEEN BY [facility]. PAIN MEDS EFFECTIVE. WILL CONTINUE TO MONITER.
[2019-02-25 19:55] VITALS: BP 157/73
--- NOTE | 2019-02-26 00:31 | NUR ---
PT ASSESSMENT COMPLETED AND VSS. MEDS GIVEN ORDERED AND WELL TOLERATED. FALL PRECAUTIONS IN PLACE. NWB ON RIGHT LEG BECAUSE OF NEW FRACTURE. ENC PT TO USE URINAL IN BED. SLEEPING WELL. R LEG ELEVATED ON PILLOWS. PT APPEARS COMFORTABLE AND DENIES PAIN AT THIS TIME. WILL CONTINUE TO MONITOR FREQUENTLY.
[2019-02-26 06:26] LABS: HEMATOCRIT 35.6 % (42.0-52.0); MCH 31.5 pg (26.0-34.0); MCHC 33.7 g/dL (28.0-37.0); MCV 93.6 fL (80.0-100.0); PLATELET COUNT 163 thou/uL (150-400); RDW 12.5 % (10.5-14.5); WBC 7.7 thou/uL (4.0-11.0)
[2019-02-26 06:37] LABS: CALCIUM 8.8 mg/dL (8.5-10.1); CREATININE 1.4 mg/dL (0.7-1.3); POTASSIUM 4.3 mmol/L (3.5-5.1)
[2019-02-26 07:36] LABS: ABSOLUTE NEUTROPHILS 5.3 thou/uL (1.4-8.2)
[2019-02-26 08:34] VITALS: BP 127/74
--- NOTE | 2019-02-26 08:45 | NUR ---
ASSUME PT CARE AT 0700. ALERT AND ORIENTED X 3, FORGETFUL, LITTLE SLURRED SPEECH. PT ASSESSMENT COMPLETED AND VSS ON RA. MEDS GIVEN ORDERED AND WELL TOLERATED WITH THIN LIQUID. REPORTS DIDN'T SLEEP WELL LAST NIGHT. DISCUSSED ABOUT SLEEPING AID. PT WOULD LIKE TO TRY, WILL DISCUSS WITH SAID. NWB ON RIGHT LEG BECAUSE OF NEW FRACTURE. C/O RIGHT HIP PAIN 9/10, PRN HYDROCODONE GIVEN. OFFERED SUPPORTIVE CARE. DISCUSSED ABOUT CARE PLAN, ENCOURAGE PT TO VOICE HIS NEEDS. FALL PRECAUTION IN PLACE. CAM BOOT IN PLACE PER PT. WILL CONTINUE TO MONITOR FREQUENTLY.
--- NOTE | 2019-02-26 13:33 | NUR ---
Nutrition followup: PO intake documented as 75-100% of meals. Spoke with pt's sister this visit. Continues on carb controlled diet with improved BG readings. Lantus has been increased additionally since last eval. BG 74-237, A1C 7%. Reviewed meal ordering/menu as desired. Currently 1800 breana diet order is appropriate at this time. New nondisplaced distal foot fracture 02/25. No new weight. Prior dietary review attempted with pt but unsuccessful. Low risk
--- NOTE | 2019-02-26 15:00 | NUR ---
cm notified by 5 n team that pt in cam boot rt fx foot, had fall over weekend and with increased need for cont rehab sister using provided snf list to see where he wants to go for more rehab rt going home with sister and bother in law. will cont following as needed for dc needs.
[2019-02-26 19:20] VITALS: BP 125/61
--- NOTE | 2019-02-27 02:34 | NUR ---
ASSUMED CARES AT 1900. PT A/O*4, IMPULSIVE. C/O PAIN IN THE BACK AND RIGHT ANKLE, PAIN MEDICATION ADMINISTERED NEEDED. VITALS REMAIN STABLE. PT VERY SLEEPY AND LETHARGIC. LS CLEAR, WITH SATS >95% ON RA. HS STABLE, PULSES 2/2. BS ACTIVE*4, ABDOMEN OBESE AND SOFT. PT UP MULTIPLE TIMES TO VOID VIA URINAL, URINAL REMAINS CLEAR, LIGHT YELLOW AND ODORLESS. CAM BOOT REMAINS IN PLACE ON RLE, EXTREMITY REMAINS NWB. PT REFUSED MELATONIN TONIGHT, STILL HAS TROUBLE SLEEPING. Q1H VISUAL CHECKS. CALL LIGHT WITHIN REACH. FALL PRECAUTIONS IN PLACE
[2019-02-27 07:30] VITALS: BP 145/65
--- NOTE | 2019-02-27 10:04 | NUR ---
ASSUME PT CARE AT 0700. VSS ON RA. REFUSED MELATONIN LAST NIGHT. DIDN'T SLEEP GOOD. C/O RIGHT HIP PAIN 01/17. PRN HYDROCODONE GIVEN WITH MORNING MEDS. BS 95 THIS AM. NOTIFIED MYLA AND RECEIVED VERBAL ORDER TO HOLD LANTUS THIS AM. OFFERED SUPPORTIVE CARE. MIRALAX GIVEN ORDERED. FALL PRECAUTION IN PLACE. NWB ON LE, CAM BOOT IN PLACE. WILL CONTINUE TO MONITOR.
--- NOTE | 2019-02-27 13:13 | NUR ---
team meeting, recommendation skilled rehab rt to pt changes in mobility, new fx and is cam boots. anticipated dc date . will needs to send out referral and get insurance auth.
--- NOTE | 2019-02-27 13:53 | NUR ---
I have reviewed the documentation by RENO BLEDSOE from 02/26/19 to 02/26/19 and I concur with it. BING SALEEM, PT, DPT
--- NOTE | 2019-02-27 13:54 | NUR ---
I have reviewed the documentation by EVIN ANDREWS from 02/21/19 to 02/21/19 and I concur with it. BING SALEEM, PT, DPT
--- NOTE | 2019-02-27 15:34 | NUR ---
DISCHARGE PLANNING. ANTICIPATED DISCHARGE PLANNED FOR TUESDAY, PER UNIT CM. POST ACUTE RECOMMENDED AT DISCHARGE. PER FAMILY REQUEST, PATIENT REFERRAL FAXED TO [facility]. CALL PLACED TO [employer] TO NOTIFY OF PATIENT REFERRAL AND DISCHARGE DATE. AWAITING RESONSE FROM [facility] REGARDING ACCEPTANCE. UNIT CM AWARE. FOLLOWING TO ASSIST WITH DISCHARGE.
--- NOTE | 2019-02-27 15:48 | NUR ---
I have reviewed the documentation by RENO BLEDSOE from 02/27/19 to 02/27/19 and I concur with it. BING SALEEM, PT, DPT
[2019-02-27 19:37] VITALS: BP 131/74
--- NOTE | 2019-02-27 21:51 | NUR ---
ASSUMED CARES AT 1900. PT SLEEPY AND LETHARGIC, ORIENTED *4. C/O PAIN RLE AND RIGHT HIP, PAIN MEDICATION ADMINISTERED ORDERED. VITALS REMAIN STABLE. CAM BOOT REMAINS IN PLACE ON RIGHT LEG, WEIGHT BEARING TOLERATED ON EXTREMITY. MELATONIN ADMINISTERED AT HS, PT SLEEPING AT 2130. UP TO SIDE OF BED TO USE URINAL THEN LAYS BACK IN BED. FREQUENT VISUAL CHECKS. CALL LIGHT WITHIN REACH. FALL PRECAUTIONS IN PLACE
[2019-02-28 07:15] VITALS: BP 136/62
--- NOTE | 2019-02-28 08:34 | HC ---
[facility] [place] [address] CONSULTATION Name: ALEXX LINDSEY Room #: 513-P ADM IN M.R.#: [id number] Admission: 02/17/19 Attend Phys: Jamar Dillon MD Discharge: Date of : 52 Report #: [id number] THIS REPORT FOR: //name// CC: Jamar Neville DATE OF SERVICE: 02/27/2019 ENDOCRINE CONSULTATION CONSULTING PHYSICIAN: Jamar Dillon M.D. REASON FOR CONSULTATION: Uncontrolled type 2 diabetes mellitus. HISTORY OF PRESENT ILLNESS: This is a 68-year-old male patient whose medical background is significant for type 2 diabetes mellitus, hypertension, hyperlipidemia, aortic stenosis. The patient had an earlier presentation to [facility] with a CVA and is currently in the rehab unit, undergoing rehabilitative efforts. The patient indicates that he has had type 2 diabetes mellitus for nearly 10 years and that he is maintained on a regimen of Lantus insulin 50 units twice a day in addition to Humalog supplemental scale. He notes that his blood glucose values have typically on the 200-300 mg/dL range without issues of hypoglycemia. He is not aware of difficulties pertaining to retinopathy or nephropathy and denies issues with neuropathy. He denies having had coronary artery disease in the past. Additionally, the patient is known to have hyperlipidemia and is on treatment with atorvastatin as well as hypertension for which he takes losartan. REVIEW OF SYSTEMS: CONSTITUTIONAL: Fatigue, tiredness, but no fever or chills. PULMONARY: Occasional shortness of breath and cough, but no hemoptysis. CARDIAC: Noted for intermittent issues with palpitations, dyspnea on exertion, but not chest pain. GASTROINTESTINAL: Negative for abdominal pain, nausea, vomiting or changes in bowel movement frequency. NEUROLOGY: Recent stroke, left-sided weakness, slurred speech, but not seizures or loss of consciousness. UROLOGY: Poor stream, urgency, incontinence, but no polyuria or nocturia. SKIN: Negative for rash or ulceration. Otherwise review of systems noncontributory other than those mentioned in HPI. PAST MEDICAL HISTORY: [facility] [address] [place] [address] CONSULTATION Name: ROSALIAALEXX Chantel Room #: 513-P [facility] IN M.R.#: [id number] Admission: 02/17/19 Attend Phys: Jamar Dillon MD Discharge: Date of : 52 Report #: [id number] 1. Type 2 diabetes mellitus. 2. Hypertension. 3. Hyperlipidemia. 4. Aortic stenosis. 5. Right lower extremity DVT. 6. CVA. 7. CAD. 8. Rheumatic fever. 9. BPH. 10. Peripheral diabetic neuropathy. 11. Obesity. OUTPATIENT MEDICATIONS: Include [place] 10/325 mg p.r.n., losartan 25 mg daily, gabapentin 300 mg t.i.d., Flomax 0.4 mg daily, atorvastatin 40 mg daily, aspirin 81 mg daily, Humalog insulin supplemental scale, Levemir insulin 50 units b.i.d., aspirin 81 mg daily, and atorvastatin 40 mg daily. ALLERGIES: No known drug allergies. FAMILY HISTORY: Noted for diabetes and hypertension. SOCIAL HISTORY: The patient is , has no kids, had smoked up until his recent stroke 2 weeks ago. PHYSICAL EXAMINATION: GENERAL: Pleasant, middle-aged male patient, who is not in apparent distress. VITAL SIGNS: Blood pressure is 145/65 mmHg, heart rate is 69 per minute, respirations 20 per minute, temperature 36.5 degrees. HEENT: Anicteric. Intact extraocular motions. NECK: Supple, without JVD, carotid bruits or lymphadenopathy. I do not appreciate thyromegaly. CHEST: Noted for distant breath sounds, scattered rales, but no crackles or wheezes. HEART: Regular rate and rhythm without murmurs or gallops. ABDOMEN: Obese, but soft and lax without tenderness or organomegaly, has active bowel sounds. EXTREMITIES: Noted for trace ankle edema bilaterally. NEUROLOGIC: Awake, alert, noted to have slurred speech, difficulty formulating statements, right-sided weakness, left-sided weakness. SKIN: Scattered bruise tejeda, no ulceration. PSYCHIATRIC: Pleasant, interactive, answers my questions appropriately. ABDOMEN: Soft and lax. No organomegaly, has active bowel sounds. LABORATORY DATA: During his hospital stay here, the patient has had fluctuating blood glucose values that have gone as high as 229 mg/dL, but as low as 95 mg/[place] [address] CONSULTATION Name: ALEXX LINDSEY Room #: 513-P [facility] IN M.R.#: [id number] Admission: 02/17/19 Attend Phys: Jamar Dillon MD Discharge: Date of : 52 Report #: [id number] this morning and 74 mg/dL last night, sodium 139, potassium 4.3, chloride 105, CO2 28, anion gap 6, BUN 25, creatinine 1.24, glucose 81, total bilirubin 1.1, calcium 8.8, magnesium 2.0, alkaline phosphatase 74, ALT 25, total protein 7.9, albumin 3.2, GFR 51, total cholesterol 111, triglycerides 68, HDL 45, LDL 53, VLDL 14. White blood count 7.7, hemoglobin 12, hematocrit 35.6, platelets 163. TSH 1.799. Vitamin B12 of 333. Hemoglobin A1c 7.0. ASSESSMENT AND PLAN: 1. Type 2 diabetes mellitus. As noted above, the patient has had fluctuating blood glucose values during his hospital stay. I am going to move more towards a basal bolus regimen and as such will markedly drop his Lantus intake in favor of introducing a fixed scheduled meal coverage with Humalog. I will do so in the form of introducing Humalog 8 units t.i.d. a.c. with meals coverage with Humalog supplemental scale low intensity as well as Lantus 25 units q.p.m. only. Blood glucose monitoring will occur a.c. and at bedtime and further adjustments to his regimen will occur accordingly. 2. Hypertension. The patient's level of blood pressure control is satisfactory. He is to continue with the current losartan regimen. 3. Hyperlipidemia. The patient will certainly need tight lipid control in view of his type 2 diabetes mellitus and cerebrovascular accident background. He is to continue with the current atorvastatin therapy. 4. Chronic kidney disease. The patient has a GFR of 51, which certainly limits our oral therapeutic options. I will keep this in mind going forward and upon discharge in terms of therapeutic selection for the patient. I certainly appreciate this consultation. <ELECTRONICALLY SIGNED> By: Kristian Huggins MD 02/28/19 0834 09 03 Ahbrenden Huggins MD /nt
--- NOTE | 2019-02-28 12:06 | NUR ---
[facility] is seeking auth for skilled rehab, have accepted pt. sister kamryn and celia agree with dcp. still have resources for after post acute, ie [facility] and [facility]. pt plan to return home with sister and bother in law after rehab.
--- NOTE | 2019-02-28 14:30 | NUR ---
Patient participated in community reintegration on 02/28/19 with PHYSICAL THERAPY. Refer to documentation by [facility]RI PHYSICAL THERAPIST.
--- NOTE | 2019-02-28 14:49 | NUR ---
THIS NURSE CALLED OFFICES OF DR. SHELBY AND DR. MOODY AT FAMILY REQUEST FOR PROVIDERS TO CALL EMILY GRANADOS ABOUT PT MEDICAL CARE/MEDICATIONS PRIOR TO PT DISCHARGE TOMORROW. RECEPTIONISTS STATE THAT THEY WILL PASS ALONG THE MESSAGE TO PROVIDER AND PROVIDER WILL CALL MS GRANADOS.
--- NOTE | 2019-02-28 16:31 | NUR ---
ASSUMED CARE OF PT AT 0715. PT IS A&OX4 AND VITAL SIGNS ARE STABLE. PT COMPLIANT WITH ANSELMO NICHOLS. PAIN MANAGED WITH PO MEDICAITONS, PT PARTICIPATED IN SCHEDULED THERAPIES. ACCU CHECKS ACHS AND MANAGED WITH INSULIN PER ORDERS. PLANS FOR D/C TOMORROW. FALL PREACUTIONS IN PLACE AND NURSING WILL CONTINUE TO MONITOR.
[2019-02-28 19:50] VITALS: BP 141/77
--- NOTE | 2019-02-28 21:20 | HC ---
[facility] [place] [address] CONSULTATION Name: ALEXX LINDSEY Room #: 513-P ADM IN .R.#: [id number] Admission: 02/17/19 Attend Phys: Jamar Dillon MD Discharge: Date of : 52 Report #: [id number] THIS REPORT FOR: //name// CC: Jamar Neville DATE OF SERVICE: 02/18/2019 NEUROBEHAVIORAL STATUS EXAMINATION ATTENDING PHYSICIAN: Jamar Dillon MD MEDICAL CARE EVALUATION SPECIALIST: Willi Leonardo, PhD CLINICAL PRESENTATION: The patient is a 68-year-old white male admitted to the rehabilitation unit for a comprehensive inpatient rehabilitation program to improve functional mobility, activities of daily living and self-care and mental status secondary to 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 His assessment included right hemiparesis, gait instability with multiple falls, urinary retention, severe aortic stenosis, chronic back pain, hypertension and rheumatic fever. A complete description of his medical condition and history can be found in his medical record. Neuropsychological consultation was requested to provide assistance in the assessment of cognitive and emotional status and to provide recommendations and services. Prior to this most recent admission, he has been living with his sister. While , he has lived with his sister for several years. He does not have children, but maintains contact with his . The patient is a high school graduate. 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 His history includes a psychiatric hospitalization for depression in . TECHNIQUES UTILIZED: Clinical interview, review of medical records, staff consultation and behavioral observation, mini mental status exam 2 standard version, clock drawing and verbal fluency assessment. EXAMINATION FINDINGS: The patient was alert and cooperative with the assessment. He accurately described the reason for his admission. There was no evidence of aphasia. His thoughts are logical and goal oriented. There is no evidence of thought disorder. He does not report auditory or visual hallucinations, anxiety or depression. Sleep is reported as disrupted. His appetite is within normal limits. He does not report a history of alcohol or cannabis abuse. His performance on the MMSE 2 brief version was in the mild range of impairment with a raw score of 13/16. He was 3/3 for initial registration, 4/5 for [facility] [address] [place] [address] CONSULTATION Name: ALEXX LINDSEY Room #: 513-P [facility].#: [id number] Admission: 02/17/19 Attend Phys: Jamar Dillon MD Discharge: Date of : 52 Report #: [id number] orientation to time, 5/[address] and 1/3 for immediate recall of 3 items after a brief time delay and distraction. He had a raw score of 13/16 and a T score of 35, which was at the 7th percentile. Performance on the MMSE 2 standard version was 24/30 with a T score of 37 and percentile rank of 10. He was 3/5 for serial sevens, 2/2 for naming, 1/1 for repetition, 3/3 for auditory comprehension. He could read and follow a single command. The patient was unable to write a sentence. He could copy a simple geometric design and follow a written command. Deficits are noted in spelling and aspects of thought organization. Clock drawing revealed impairment with perseveration of number placement. The patient was unable to accurately place the numbers on the clock. Evidence of perseveration was noted throughout the test. His speech was slow and slurred. Verbal fluency was in the low average range for letter with a raw score of 18, T score of 43 and percentile rank of 14. Category fluency was extremely low with a raw score of 13, T score 28, percentile rank of less than 1. Overall, total fluency was less than 1% with a raw score of 31 and a T score of 20. Deficits in verbal fluency are noted suggesting impairment in thought organization. Lower category fluency in comparison to letter fluency suggests deficits within the medial temporal lobe and often seen in neurodegenerative disorders. DIAGNOSTIC IMPRESSION: Vascular neurocognitive disorder, without behavior disorder -- extent to be determined, likely in the [id number] range. Adjustment disorder with anxiety and depressed mood. RECOMMENDATIONS: The patient will require assistance in aspects of thought organization that includes planning and problem solving. He is presenting with perseveration, which is consistent with frontal lobe deficits. Obtaining his attention prior to changing environmental demands will be necessary during therapies. A followup neuropsychological evaluation will be of benefit to clarify the severity of cognitive deficits following discharge from the hospital. Verbal praise and complements during participation in therapies along with assisting him in recognizing areas of deficit. The patient does continue to smoke. He should be discouraged from conditions, which further affect his cardiovascular health. A treatment program to assist with tobacco cessation is indicated. [address] [address] CONSULTATION Name: ROSALIAALEXX Chantel Room #: 513-P [facility] IN M.R.#: [id number] Admission: 02/17/19 Attend Phys: Jamar G. Wilma, MD Discharge: Date of : 52 Report #: [id number] Thank you very much for allowing me to provide the consultation on this patient. <ELECTRONICALLY SIGNED> By: Willi Leonardo, PhD 02/28/19 2120 1655 0056 Willi Leonardo, PhD /nt
--- NOTE | 2019-03-01 02:04 | NUR ---
ASSESSMENT: PT REMAIN ALERT AND ORIENT TIMES THREE. APPEARS DEPRESSED. POSSIBLE DC TO HOME TODAY. VSS, FEBRILE. PT STILL REFUSE TO HAVE BED ALARM SET. RIGHT ANKLE NOTED IN BOOT R/T A FX SECONDARY TO A FALL A FEW MORNINGS AGO. PRN PAIN MEDICATION GIVEN WITH PARTIAL RELIEF PER PT. WBAT ON RIGHT FOOT/ANKLE. PT COMPLIANT TO USING CALL BUTTON FOR BR USE. PT IS SLOW TO RESPOND BUT EVENTUALLY LET IT BE KNOWN WHAT HIS NEEDS ARE. ACCU CHECK WAS 99, ENCOURAGED TO EAT A LITE HS SNACK AFTER REFUSING TO EAT ANYTHING. PT DID EVENTUALLY EAT 2 PKS OF GRAM CRACKERS AND DRANK A DIET FREE SODA. SLOW PROGRESS TOWARDS DC GOALS, WILL CONTINUE TO MONITOR.
[2019-03-01 08:00] VITALS: BP 136/65
[2019-03-01] MEDS ORDERED: VOLTAREN GEL 1100 G2 TOP (08:47)
[2019-03-01] MEDS ORDERED: LEVEMIR SUBQ (08:47)
[2019-03-01] MEDS ORDERED: TYLENOL EXTRA500 MG PO (08:47)
[2019-03-01] MEDS ORDERED: MELATONIN5 M1 PO (08:47)
[2019-03-01] MEDS ORDERED: MIRALAX17 GM PO (08:47)
[2019-03-01] MEDS ORDERED: LIDOPATCH1 EACH TRANSDERM (08:47)
[2019-03-01] MEDS ORDERED: ROBAXIN 750 MG750 MG PO (08:47)
[2019-03-01] MEDS ORDERED: COLACE100 MG PO (08:47)
[2019-03-01] MEDS ORDERED: FLOMAX0.4 MG PO (08:47)
[2019-03-01] MEDS ORDERED: NOVOLOG100 UNIT/1 SUBQ ×2 (08:47)
[2019-03-01] MEDS ORDERED: VITAMIN B-12500 MCG PO (08:47)
--- NOTE | 2019-03-01 12:16 | PLAN ---
[facility] [place] [address] REHAB UNIT PLAN OF CARE Name: ALEXX LINDSEY Room #: 513-P ADM IN M.R.#: [id number] Admission: 02/17/19 Attend Phys: Jamar Dillon MD Discharge: Date of : 52 Report #: [id number] THIS REPORT FOR: //name// CC: Jamar Neville DATE OF SERVICE: 02/19/2019 PROGRESS NOTE AND OVERALL PLAN OF CARE SUBJECTIVE: The patient is seen back today in followup. He is in no distress. Last recorded temperature 36.8, pulse 74, respirations 20, blood pressure 128/58. The patient is alert. He does have some right-sided weakness post-CVA. He is working in therapies with transfers, min assist, bed mobility has been standby assistance. He is ambulated up to 120 feet mod assist with a front-wheeled walker. In occupational therapy, lower body dressing is moderate assistance. He is on a regular diet with all liquids. ASSESSMENT: A 68-year-old white male with the following problem list: 1. Left frontal subcortical infarct. 2. Right hemiparesis. 3. Gait instability with multiple falls. 4. Urinary retention, is on Flomax. 5. Severe aortic stenosis. Plan is for ischemic workup as an outpatient. He had the implantable loop recorder placed. 6. Chronic back pain. 7. Hypertension. 8. Rheumatic fever. PLAN: The overall plan of care is based on the preadmission screen, post-admission physician evaluation and information garnered from therapy assessments. 1. Estimated length of stay is probably at least 10-14 days pending progress. 2. Medical prognosis is reasonably good. 3. Anticipated interventions includes the interdisciplinary acute inpatient rehabilitation program. 4. Anticipated functional outcomes would be for the patient to become modified independent with transfers, mobility, ADLs as well as cognition, communication and swallowing. 5. Discharge destination would be back home with family. He does live with his sister and [id number]. 6. Expected therapy by discipline includes PT and OT and speech 1 hour per day each five days a week throughout the duration of the acute inpatient [address] [address] REHAB UNIT PLAN OF CARE Name: ALEXX LINDSEY Chantel Room #: 513-P ADM IN M.R.#: [id number] Admission: 02/17/19 Attend Phys: Jamar Dillon MD Discharge: Date of : 52 Report #: [id number] rehabilitation stay. We may be able to taper off his speech in favor of more PT and OT depending upon how he does. <ELECTRONICALLY SIGNED> By: Jamar Dillon MD 03/01/19 1216 [id number] 1550 Jamar Dillon MD /PMT
--- NOTE | 2019-03-01 16:47 | NUR ---
I have reviewed the documentation by RENO BLEDSOE from 02/28/19 to 03/01/19 and I concur with it. BING SALEEM, PT, DPT
--- NOTE | 2019-03-01 19:21 | NUR ---
ASSUMED CARE OF PT AT 0715. PT IS A&OX4 THOUGH IMPULSIVE, AND VITAL SIGNS ARE STABLE. SISTER AT BEDSIDE MOST OF MORNING. ORDERS GIVEN TO DISCHARGE PT TO [facility]. REPORT CALLED AT APPROXIMATELY 1130 TO FACILITY. PT AND FAMILY GIVEN CHART COPY WITH DISCHARGE SUMMARY, DISCHARGE PAPERWORK, DISCHARGE EDUCAITON, MEDICATION LIST TO TAKE TO FACILITY. SISTER SIGNED DISCHARGE PAPERWORK. GAGAN MCDANIEL TALKED TO SISTER ABOUT WALKER AND PT SISTER WAS INFORMED THAT THE WALKER WOULD BE ORDERED THROUGH FACILITY WHEN PT DISCHARGES AFTER SKILLED REHAB. MEDICATIONS REVIEWED WITH PT AND SISTER BY MYLA LOCKE NP AND THIS NURSE. THIS NURSE HIGHLIGHTED AND DISCUSSED FOLLOW-UP APPOINTMENTS WITH SISTER THAT WERE INCLUDED IN DISCHARGE PACKET AND ALSO GAVE CONTACT INFORMATION TO SISTER FOR DR. SHELBY WITH INSTRUCTIONS TO CALL AND MAKE APPOINTMENT IN 2-4 WEEKS FOR FOLLOW-UP. PT AND SISTER ASKED MULTIPLE TIMES IF THEY HAVE ANY FURTHER QUESTIONS, BOTH STATED NO. PT DISCHARGED WITH SISTER, AND FACILITY ARRANGED TRANSPORT SYSTEM IN WHEELCHAIR VAN.
== END 2019-03-01 13:00 | DRG 56 ==
PROVIDERS: Nurse Practitioner; ADMIT Physical Medicine & Rehabilitation
DX: I69.351 Hemiplegia and hemiparesis following cerebral infarction affecting right dominant side (principal); I63.9 Cerebral infarction, unspecified; N17.9 Acute kidney failure, unspecified; G89.29 Other chronic pain; M54.9 Dorsalgia, unspecified; R29.6 Repeated falls; I35.0 Nonrheumatic aortic (valve) stenosis; I00 Rheumatic fever without heart involvement; F01.50 Vascular dementia, unspecified severity, without behavioral disturbance, psychotic disturbance, mood disturbance, and anxiety; F43.23 Adjustment disorder with mixed anxiety and depressed mood; I25.10 Atherosclerotic heart disease of native coronary artery without angina pectoris; Z86.73 Personal history of transient ischemic attack (TIA), and cerebral infarction without residual deficits; E78.5 Hyperlipidemia, unspecified; Z88.8 Allergy status to other drugs, medicaments and biological substances; E11.42 Type 2 diabetes mellitus with diabetic polyneuropathy; E66.9 Obesity, unspecified; Z68.36 Body mass index [BMI] 36.0-36.9, adult; Z83.3 Family history of diabetes mellitus; Z82.49 Family history of ischemic heart disease and other diseases of the circulatory system; E11.22 Type 2 diabetes mellitus with diabetic chronic kidney disease; I12.9 Hypertensive chronic kidney disease with stage 1 through stage 4 chronic kidney disease, or unspecified chronic kidney disease; E11.65 Type 2 diabetes mellitus with hyperglycemia; R33.8 Other retention of urine; N40.1 Benign prostatic hyperplasia with lower urinary tract symptoms; E53.8 Deficiency of other specified B group vitamins; K59.00 Constipation, unspecified; Z60.2 Problems related to living alone; N18.3 Chronic kidney disease, stage 3 (moderate); Z86.718 Personal history of other venous thrombosis and embolism; S82.831A Other fracture of upper and lower end of right fibula, initial encounter for closed fracture; Y93.01 Activity, walking, marching and hiking; Y92.231 Patient bathroom in hospital as the place of occurrence of the external cause; L89.891 Pressure ulcer of other site, stage 1
CPT/HCPCS: 10112

== ENCOUNTER → 2019-08-27 | Outpatient (CLI) | payer OTHER ==
[~2019-08-27] MED LIST changes: +ASPIR 8181 MG PO; +COLACE100 MG PO; +FLOMAX0.4 MG PO; +LEVEMIR SUBQ; +LIDOPATCH1 EACH TRANSDERM; +LIPITOR40 MG PO; +MELATONIN5 M1 PO; +MIRALAX17 GM PO; +NOVOLOG100 UNIT/1 SUBQ; +ROBAXIN 750 MG750 MG PO; +TYLENOL EXTRA500 MG PO; +VITAMIN B-12500 MCG PO; +VOLTAREN GEL 1100 G2 TOP
== END ==
LOC: SJCVCIMAG 13:31 → SJCVC 13:31
DX: I35.0 Nonrheumatic aortic (valve) stenosis (principal); I48.0 Paroxysmal atrial fibrillation; I63.49 Cerebral infarction due to embolism of other cerebral artery; M54.9 Dorsalgia, unspecified; E11.40 Type 2 diabetes mellitus with diabetic neuropathy, unspecified; I25.10 Atherosclerotic heart disease of native coronary artery without angina pectoris; I10 Essential (primary) hypertension; E78.5 Hyperlipidemia, unspecified; Z87.891 Personal history of nicotine dependence; Z79.82 Long term (current) use of aspirin; Z79.899 Other long term (current) drug therapy

== ENCOUNTER → 2019-09-12 | Outpatient (CLI) | payer OTHER | LOC: SJCVC 14:18 | DX: I35.0 Nonrheumatic aortic (valve) stenosis (principal); I48.0 Paroxysmal atrial fibrillation; I25.10 Atherosclerotic heart disease of native coronary artery without angina pectoris; E11.9 Type 2 diabetes mellitus without complications; I10 Essential (primary) hypertension; E78.5 Hyperlipidemia, unspecified; Z79.82 Long term (current) use of aspirin; Z79.899 Other long term (current) drug therapy ==